=== PATIENT | female | born 1965 | race American Indian/Alaskan Native ===

== ENCOUNTER 2017-01-07 11:50 | Outpatient (CLI) | payer MEDICARE ==
[2017-01-07 12:58] LABS: Blood Urea Nitrogen 9 mg/dL (7-17)
[2017-01-07] MEDS ORDERED: NACL ONE (14:05)
--- NOTE | 2017-01-07 15:35 | Cat Scan Report ---
CT scan of abdomen and pelvis with IV contrast: Findings: Normal liver spleen pancreas and gallbladder. Normal adrenals kidneys and bladder. No free intraperitoneal fluid. No evidence of adenopathy. Gaseous colon with moderate volume stool in colon. The appendix appears normal. No evidence of diverticulitis. Small ventral hernia adjacent to the hernia repair. The hernia contains fat. Impression: Small ventral hernia.
== END 2017-01-07 11:51 | disposition home or self-care (01) ==
LOC: CT 11:50
PROVIDERS: ATTEND Obstetrics & Gynecology Gynecologic Oncology
DX: K43.9 Ventral hernia without obstruction or gangrene (principal); M25.551 Pain in right hip; M79.604 Pain in right leg; R10.2 Pelvic and perineal pain
CPT/HCPCS: 36415; 74177; 82565; 84520; Q9967

== ENCOUNTER 2017-01-17 11:42 | Outpatient (CLI) | payer MEDICARE ==
--- NOTE | 2017-01-17 13:42 | Mammography Report ---
Bilateral mammogram: Compared to 09/01/12. CAD study utilized. Findings: Heterogeneous breast parenchyma bilaterally. No mass or microcalcification. Benign axillary nodes. Impression: Benign findings. Annual followup recommended. BI-RADS CATEGORY: 2 = Benign ACR BI-RADS MAMMOGRAPHIC CODES: 0 = Needs additional imaging evaluation; 1 = Negative; 2 = Benign; 3 = Probably benign; 4 = Suspicious; 5 = Malignant; 6 = Known biopsy-proven malignancy COMMENT: 1. Dense breast tissue, i.e., adenosis, fibrocystic changes, etc., may obscure an underlying neoplasm. 2. Approximately 10% of cancers are not detected with mammography. 3. A negative mammography report should not delay biopsy if a clinically suspicious mass is present. COMMENT: Patient follow-up letters are generated in [employer].
== END 2017-01-17 11:43 | disposition home or self-care (01) ==
LOC: MAMMO 11:42
PROVIDERS: ATTEND Obstetrics & Gynecology Gynecologic Oncology
DX: Z12.31 Encounter for screening mammogram for malignant neoplasm of breast (principal)
CPT/HCPCS: 77067; G0202

== ENCOUNTER 2019-10-01 14:09 | Outpatient (CLI) | payer MEDICARE ==
--- NOTE | 2019-10-01 16:08 | Ultrasound Report ---
BILATERAL DIGITAL DIAGNOSTIC MAMMOGRAM WITH CAD 10/01/2019 RIGHT LIMITED BREAST ULTRASOUND INDICATION: History of ovarian cancer with a long-standing right Hicupi-s-Moyl. Palp lump right breas t TECHNIQUE: Digital bilateral mammographic imaging was performed. Spot compression views were obtaine d. Limited ultrasound was performed. This examination was interpreted with the benefit of Computer- ded Detection (CAD) analysis. COMPARISON: 01/17/2017 FINDINGS: Breast Density: The breasts are heterogeneously dense, which may obscure small masses. MAMMOGRAPHIC FINDINGS: There is no evidence of dominant mass, suspicious calcifications or architectu ral distortion in the left breast. An irregular 3.2 cm right upper outer mass with pleomorphic calcif ications correlates with the palpable lump. A grossly abnormal right axillary lymph node also contain s calcifications and measures 2.1 cm. The lymph node is more dense than the rest of the lymph nodes i n the axilla. ULTRASOUND FINDINGS: Targeted ultrasound evaluation was performed of the area of interest. Ultrasou nd of the upper right breast was performed and demonstrated a solid irregular hypoechoic mass at 10:0 0 12 cm from the nipple. It contains numerous calcifications and correlates with the palpable mass. I t measures 2.2 x 2.1 x 2.4 cm. A second irregular solid heterogeneous hypoechoic mass at 11:00 6 cm f rom the nipple measures 0.7 x 0.6 x 0.6 cm. Ultrasound of the right axilla demonstrates an abnormal l ymph node with minimal central fat. It measures 2.2 x 1.3 x 1.7 cm and contains numerous calcificatio ns within the hilum. IMPRESSION: Suspicious right breast masses at 10:00 12 cm from the nipple and at 11:00 6 cm from the nipple. A suspicious right axillary lymph node. Recommend ultrasound-guided needle biopsies of these 3 lesions. Follow up recommendation: Biopsy BI-RADS Category 5: Highly Suggestive of Malignancy. A "normal" or negative report should not discourage follow up or biopsy of a clinically significant f inding. A written summary of these findings will be mailed to the patient. The patient will be entered into a mammography reporting system which will generate a reminder letter for the patient's next appointmen t at the appropriate interval. According to the [employer], yearly mammograms are recommended starting at age 40 and continuing as long as a woman is in good health. Breast MRI is recommended for women with an ruddy roximately 20-25% or greater lifetime risk of breast cancer, including women with a strong family his tory of breast or ovarian cancer and women who have been treated for Hodgkin's disease. Signer Name: Ha Blair MD Signed: 10/01/2019 4:03 PM Workstation Name: [id number]
== END 2019-10-01 14:10 | disposition home or self-care (01) ==
LOC: SPVWC 14:09
PROVIDERS: ATTEND Surgery
DX: N63.11 Unspecified lump in the right breast, upper outer quadrant (principal); R59.0 Localized enlarged lymph nodes; Z85.43 Personal history of malignant neoplasm of ovary
CPT/HCPCS: 77066

== ENCOUNTER 2019-10-11 09:20 | Outpatient (CLI) | payer MEDICARE ==
--- NOTE | 2019-10-11 13:20 | Ultrasound Report ---
ULTRASOUND-GUIDED NEEDLE CORE BIOPSY RIGHT BREAST WITH CLIP PLACEMENT X2 AND ULTRASOUND GUIDED NEEDLE CORE BIOPSY RIGHT AXILLARY LYMPH NODE CLINICAL: 2 suspicious right breast masses and suspicious right axillary lymph nodes. FINDINGS: The procedure was explained to the patient and informed consent was obtained. Ultrasound demonstrated the previously identified breast masses at 10:00 10 cm from the nipple and at 11:00 6 cm from the nipple.. I marked the breast with a felt tip marker and a timeout was called. The skin was prepped with Chloro -Prep and anesthetized with 1% lidocaine. Needle core biopsy of an enlarged axillary lymph node was performed through a small dermatotomy using 1% lidocaine for superficial anesthesia and 2% lidocaine for deep anesthesia and a coaxial 18-gauge achieve biopsy device. 2 cores were obtained and placed in formalin. A clip was deployed within the l ymph node. Needle core biopsy was performed through small dermatotomy at 11:00 6 cm from the nipple using ultras ound guidance, 2% lidocaine with epinephrine for deep anesthesia and a 14-gauge Achieve biopsy device . 4 cores were obtained and placed in formalin. A clip was deployed within the lesion. Needle core biopsy was performed through small dermatotomy at 10:00 10 cm from the nipple using ultra sound guidance, 2% lidocaine with epinephrine for deep anesthesia and a 14-gauge Achieve biopsy devic e. 3 cores were obtained and placed in formalin. A clip was deployed within the mass. The patient tolerated the procedure well and there were no apparent complications. Hemostasis was ach ieved with minimal effort and sterile dressings were applied. A post procedure mammogram demonstrated concordant clip deployment at 3 sites. She left the [facility] in good condition and was given instructions for wound care and follow-up. IMPRESSION: Uncomplicated ultrasound guided needle core biopsy with clip placement right breast and u ncomplicated ultrasound-guided needle core biopsy of a right axillary lymph node. Signer Name: Ha Blair MD Signed: 10/11/2019 1:15 PM Workstation Name: [id number]
--- NOTE | 2019-10-11 13:22 | Mammography Report ---
DIGITAL DIAGNOSTIC MAMMOGRAM WITH CAD, 10/11/2019 INDICATION: -Post clip Rt TECHNIQUE: Digital right mammographic imaging was performed. This examination was interpreted with the benefit of Computer-aided Detection analysis. COMPARISON: 10/01/2019 FINDINGS: Breast Density: The breasts are heterogeneously dense, which may obscure small masses. Biopsy clips are identified at 11:00 6 cm from the nipple and at 10:00 10 cm from the nipple. There i s no mammographic finding at the 11:00 clip. The 10:00 clip is within the previously identified mass. A clip is also identified within a right axillary lymph node. IMPRESSION: Concordant clip deployment. Follow up recommendation: Clinical exam Post biopsy imaging. A "normal" or negative report should not discourage follow up or biopsy of a clinically significant f inding. A written summary of these findings will be mailed to the patient. The patient will be entered into a mammography reporting system which will generate a reminder letter for the patient's next appointmen t at the appropriate interval. According to the [employer], yearly mammograms are recommended starting at age 40 and continuing as long as a woman is in good health. Breast MRI is recommended for women with an ruddy roximately 20-25% or greater lifetime risk of breast cancer, including women with a strong family his tory of breast or ovarian cancer and women who have been treated for Hodgkin's disease. Signer Name: Ha Blair MD Signed: 10/11/2019 1:18 PM Workstation Name: [id number]
== END 2019-10-11 09:21 | disposition home or self-care (01) ==
LOC: SPVWC 09:20
PROVIDERS: ATTEND Surgery
DX: N63.11 Unspecified lump in the right breast, upper outer quadrant (principal); C77.3 Secondary and unspecified malignant neoplasm of axilla and upper limb lymph nodes; C50.411 Malignant neoplasm of upper-outer quadrant of right female breast; N64.89 Other specified disorders of breast; R92.0 Mammographic microcalcification found on diagnostic imaging of breast; R59.0 Localized enlarged lymph nodes; J45.909 Unspecified asthma, uncomplicated; Z79.899 Other long term (current) drug therapy; Z90.710 Acquired absence of both cervix and uterus; Z98.890 Other specified postprocedural states; Z85.43 Personal history of malignant neoplasm of ovary
CPT/HCPCS: 38505; 76942; 88305; 88341; 88342; 88368

== ENCOUNTER 2019-10-31 11:13 | Outpatient (CLI) | payer MEDICARE ==
--- NOTE | 2019-11-01 13:01 | Magnetic Resonance Report ---
BILATERAL BREAST MR WITHOUT AND WITH GADOLINIUM INDICATION: Newly diagnosed right breast cancer. Ultrasound-guided needle biopsy of a right breast m ass at 10:00 10 cm from the nipple on 10/11/2019 revealed invasive carcinoma NOS. Ultrasound guided ne edle biopsy of a right axillary lymph node revealed metastatic carcinoma. Biopsy of a right breast ma ss at 11:00 6 cm from the nipple revealed small fragments of benign breast tissue. COMPARISONS: 10/01/2019 bilateral mammogram and right breast ultrasound TECHNIQUE: Axial 1.0 mm T1 without, axial high-resolution 2.0 mm T2 and axial 1.0 mm dynamic vibrant high-resolution postcontrast T1 fat saturation sequences on a 1.5 Amelia magnet. The examination was p erformed with an 8-channel dedicated Sentinelle breast coil. Post-processing with CAD and subtraction was performed on an [employer] workstation. 18.0 cc of MultiHance was injected without incident for the c ontrast portion of the exam. Consent was obtained prior to the administration of the contrast. FINDINGS: RIGHT BREAST: Minimal background parenchymal enhancement. An irregular upper outer mass 10 cm from th e nipple contains a biopsy clip and correlates with the known cancer. It measures 3.0 x 2.4 x 2.4 cm. It demonstrates heterogeneous enhancement with mixed kinetics, 124% peak enhancement and 19% type II I washout. A second irregular enhancing mass in the upper outer quadrant 12.7 cm from the nipple victor m ures 7.7 x 5.9 x 4.6 mm. This mass correlates in size and shape with the second mass that was biopsie d by ultrasound but the location is not concordant. It is also possible to identify a second biopsy c lip in the right breast. No other mass or suspicious enhancement. A single abnormal right level 1 axi llary lymph node correlates with the known metastatic lymph node. It measures 2.2 x 2.0 x 2.0 cm. No other suspicious lymph nodes. LEFT BREAST: Mild background parenchymal enhancement. No mass or suspicious enhancement. No suspiciou s lymph nodes. IMPRESSION: 1. A known 3 cm right breast cancer at 10:00 10 to 12 cm from the nipple. 2. A 7.7 mm suspicious right breast mass which may or may not correlate with the recently biopsied se cond mass. This discordance may be explained by differences in positioning for the ultrasound and MRI procedures. Since the pathology of the second mass is discordant based on the ultrasound findings, r ecommend rebiopsy of that lesion by ultrasound and recommend a targeted right breast ultrasound to ev aluate for a possible additional mass which may correlate with this second mass identified by MRI. BI-RADS Category 6: Known Cancer Signer Name: Ha Blair MD Signed: 11/01/2019 12:56 PM Workstation Name: [id number]
== END 2019-10-31 11:14 | disposition home or self-care (01) ==
LOC: SPVIMAG 11:13
PROVIDERS: ATTEND Surgery
DX: C50.911 Malignant neoplasm of unspecified site of right female breast (principal); N63.11 Unspecified lump in the right breast, upper outer quadrant
CPT/HCPCS: A9577; C8908; 77049

== ENCOUNTER 2019-11-08 10:07 | Outpatient (CLI) | payer MEDICARE ==
--- NOTE | 2019-11-08 12:00 | Ultrasound Report ---
ULTRASOUND-GUIDED RIGHT BREAST BIOPSY WITH MARKER HISTORY: Right breast mass. CONSENT: Technique, risks and alternatives were discussed with the patient and informed written conse nt obtained. COMPARISON: 10/31/2019, 10/11/2019, 10/01/2019. PROCEDURE: Initially a targeted ultrasound was performed of the right breast at 9:30 position, 17 cm from the ni pple, to evaluate the site of a previously noted MRI finding. Images demonstrate a taller than wide 1 .2 x 0.5 x 0.6 cm irregular hypoechoic mass. This would appear to correspond with the finding seen in this region on the recent MRI. Ultrasound-guided biopsy of this area is planned for the same day. Ad ditionally, targeted ultrasound of the right breast at the 11:00 position, 6 cm from the nipple, was performed to evaluate the site of a previously biopsied area performed on 10/11. The biopsy results we re benign, but were felt to be discordant. There is no residual lesion. A biopsy marker could not be reliably identified in this region. The targeted mass in the right breast at the 9:30 position, 17 cm from the nipple, position of the [facility] breast was located sonographically. The overlying skin was cleansed with Betadine. The skin and superficial soft tissues were anesthetized with a small amount of buffered 1% lidocaine. The deeper soft tissues were anesthetized with buffered 1% lidocaine with epinephrine. A small dermatotomy was created through which a 14-gauge spring loaded core biopsy needle was used to obtain core samples. Un bijan real time sonographic guidance, a total of 5 core specimen samples were acquired to submit to [facility] pathology for analysis. At the conclusion of the procedure, a SecurMark biopsy marker was deplo yed within the residual mass. Manual pressure was applied at the biopsy site to achieve hemostasis. The incision margins were appro ximated with Steri-Strips. A postprocedure mammogram demonstrates biopsy marker in the expected locat ion. Post procedure care instructions were administered in both verbal and written forms. The patient voic ed understanding and left the breast center in stable, satisfactory condition. IMPRESSION Technically successful ultrasound-guided core biopsy of right breast mass at the 9:30 position with p lacement of breast biopsy marker. This would appear to correspond with the focal area of abnormal enh ancement seen in this region on the recent comparison MRI. A targeted ultrasound of the right breast at the 11:00 position, 6 cm from the nipple, was performed to evaluate the site of a previously biopsied area (performed 10/11/2019). These results were felt to be discordant. No residual mass is identified in this region on the current exam and no definite biop sy marker could be identified sonographically. Given the discordant findings, wire localization of th e biopsy marker may be considered if breast conservation is decided. Patient is scheduled to follow up with Dr. Murphy on 11/14/2019. Signer Name: Janusz Miranda MD Signed: 11/08/2019 11:56 AM Workstation Name: [id number]
--- NOTE | 2019-11-13 16:08 | Mammography Report ---
DIGITAL DIAGNOSTIC MAMMOGRAM WITH CAD, 11/08/2019 INDICATION: S/P clip placement ultrasound biopsy TECHNIQUE: Digital right mammographic imaging was performed. This examination was interpreted with the benefit of Computer-aided Detection analysis. COMPARISON: 10/11/2019 FINDINGS: Breast Density: The breasts are heterogeneously dense, which may obscure small masses. A third biopsy clip is now identified outer breast approximately 18 cm from the nipple. The position is concordant with the second mass identified by MRI . IMPRESSION: Concordant clip deployment after MRI biopsy. Follow up recommendation: No recall. Post biopsy imaging. A "normal" or negative report should not discourage follow up or biopsy of a clinically significant f inding. A written summary of these findings will be mailed to the patient. The patient will be entered into a mammography reporting system which will generate a reminder letter for the patient's next appointmen t at the appropriate interval. According to the [employer], yearly mammograms are recommended starting at age 40 and continuing as long as a woman is in good health. Breast MRI is recommended for women with an ruddy roximately 20-25% or greater lifetime risk of breast cancer, including women with a strong family his tory of breast or ovarian cancer and women who have been treated for Hodgkin's disease. Signer Name: Ha Blair MD Signed: 11/13/2019 4:04 PM Workstation Name: [id number]
== END 2019-11-08 10:08 | disposition home or self-care (01) ==
LOC: SPVWC 10:07
PROVIDERS: ATTEND Surgery
DX: N63.11 Unspecified lump in the right breast, upper outer quadrant (principal); D64.9 Anemia, unspecified; J45.909 Unspecified asthma, uncomplicated; Z85.43 Personal history of malignant neoplasm of ovary; Z90.710 Acquired absence of both cervix and uterus; Z98.891 History of uterine scar from previous surgery; Z79.899 Other long term (current) drug therapy; Z98.890 Other specified postprocedural states
CPT/HCPCS: 88305; 88342

== ENCOUNTER 2020-05-09 08:00 | Observation (INO) | payer MEDICARE ==
[2020-06-05 12:01] LABS: Basophils % (Auto) 0.7 % (0.0-1.8); Eosinophils % (Auto) 0.7 % (0.0-4.3); Hematocrit 39.1 % (30.3-42.9); Hemoglobin 13.2 gm/dl (10.1-14.3); Lymphocytes # (Auto) 2.4 K/mm3 (1.2-5.4); Lymphocytes % (Auto) 45.3 % (13.4-35.0); Mean Corpuscular HGB Conc 34 % (30-34); Mean Corpuscular Volume 92 fl (79-97); Monocytes # (Auto) 0.4 K/mm3 (0.0-0.8); Monocytes % (Auto) 7.2 % (0.0-7.3); Platelet Count 210 K/mm3 (140-440); Red Blood Count 4.25 M/mm3 (3.65-5.03); Red Cell Distribution Width 15.5 % (13.2-15.2)
[2020-06-05 12:13] LABS: INR 0.97 (0.87-1.13); Partial Thromboplastin Time 26.4 Sec. (24.2-36.6)
[2020-06-05 12:25] LABS: Alanine Aminotransferase 40 units/L (7-56); Albumin 4.2 g/dL (3.9-5); Blood Urea Nitrogen 7 mg/dL (7-17); Calcium 9.4 mg/dL (8.4-10.2); Hemolysis Index 15
[2020-06-05 12:26] LABS: BUN/Creatinine Ratio 10
--- NOTE | 2020-06-05 14:23 | XRay Report ---
XR chest routine 2V INDICATION / CLINICAL INFORMATION: Hx breast cancer COMPARISON: None available. FINDINGS: SUPPORT DEVICES: Right port terminates in lower SVC. HEART / MEDIASTINUM: No significant abnormality. LUNGS / PLEURA: Lungs are clear. Costophrenic sulci are sharp. No pneumothorax. No lung mass identif ied. ADDITIONAL FINDINGS: No significant additional findings. IMPRESSION: 1. No acute findings. Signer Name: Too Pérez MD Signed: 06/05/2020 2:18 PM Workstation Name: [id number]
[2020-06-09] MEDS ORDERED: CELECOXIB 200 MG CAP PO NR (06:00)
[2020-06-09] MEDS ORDERED: ceFAZolin/Water 2 GM/20 ML 2 GM/20 ML SYRINGE IV NR (06:00)
[2020-06-09] MEDS ORDERED: MIDAZOLAM 2 MG/2 ML INJ IV NR (06:00)
[2020-06-09] MEDS ORDERED: GABAPENTIN 300 MG CAP PO NR (06:00)
[2020-06-09] MEDS ORDERED: LACTATED RINGERS 1,000 ML IV SCH ×2 (06:00→10:00)
[2020-06-09] MEDS ORDERED: SCOPOLAMINE TRANSDERMAL PATCH 72 HR TD NR (06:00)
[2020-06-09] MEDS ORDERED: fentaNYL 100 MCG/2 ML INJ IV PRN (06:00)
[2020-06-09] MEDS ORDERED: dexAMETHasone 4 MG/ML VIAL ONE (07:56)
[2020-06-09] MEDS ORDERED: BUPIVACAINE-EPINEPHRINE/PF 0.5%-1:200,000 (10 ML) VIAL INFILTRATI ONE (07:56)
[2020-06-09] MEDS ORDERED: LIDOCAINE (1%) 10 MG/1 ML VIAL 20 ML MDV ONE (07:56)
--- NOTE | 2020-06-09 08:04 | Anesthesia Consultation ---
Anesthesia Consult and Med Hx Date of service: 06/09/20 - Airway Anesthetic Teeth Evaluation: Good ROM Head & Neck: Adequate Mental/Hyoid Distance: Adequate Mallampati Class: Class III Intubation Access Assessment: Possibly Difficult - Pulmonary Exam CTA: Yes - Cardiac Exam Cardiac Exam: RRR - Pre-Operative Health Status ASA Pre-Surgery Classification: ASA3 Proposed Anesthetic Plan: General Nerve Block: PECs - Pulmonary Hx Smoking: No Hx Asthma: Yes (childhood) Hx Respiratory Symptoms: No Hx Sleep Apnea: No - Cardiovascular System Hx Hypertension: No Hx Heart Attack/AMI: No Hx Cardia Arrhythmia: No - Central Nervous System CVA: No Hx Back Pain: Yes Hx Psychiatric Problems: Yes (anxiety) - Endocrine Hx Renal Disease: No Hx Liver Disease: No Hx Insulin Dependent Diabetes: No Hx Non-Insulin Dependent Diabetes: No Hx Thyroid Disease: No - Other Systems Hx Cancer: Yes (hx ovarian and breast ca) Hx Obesity: Yes (BMI 42) - Additional Comments Anesthesia Medical History Comments: No hx anesthetic complications. Has anaphylactic reaction to chemo drug but does not know the name.
--- NOTE | 2020-06-09 08:04 | Anesthesia Day of Surgery ---
Anesthesia Day of Surgery - Day of Surgery Patient Examined: Yes Patient H&P Reviewed: Yes Patient is NPO: Yes
[2020-06-09] MEDS ORDERED: HYDROmorphone 1 MG/1 ML INJ IV PRN (08:30)
--- NOTE | 2020-06-09 09:39 | Short Stay Summary ---
Short Stay Documentation Date of service: 06/09/20 - History H&P: obtained from office - Allergies and Medications Current Medications: Allergies No Known Allergies Allergy (Unverified 05/20/14 07:49) Home Medications Medication Instructions Recorded Confirmed Last Taken Type Acetaminophen [Non-Aspirin Extra 500 mg PO PRN PRN 06/02/20 06/09/20 06/08/20 History Strength] Active Medications Celecoxib (Celebrex) 200 mg PO PREOP NR Stop: 06/09/20 23:59 Last Admin: 06/09/20 08:15 Dose: 200 mg Documented by: Fentanyl (Sublimaze) 100 mcg IV ONCE PRN PRN Reason: sedation for nerve block Last Admin: 06/09/20 09:05 Dose: 100 mcg Documented by: Gabapentin (Gabapentin) 300 mg PO PREOP NR Stop: 06/09/20 23:59 Last Admin: 06/09/20 08:15 Dose: 300 mg Documented by: Hydromorphone HCl (Dilaudid) 0.25 mg IV Q10MIN PRN PRN Reason: Pain, Moderate (4-6) Stop: 06/09/20 19:00 Cefazolin Sodium 3 gm/ Sodium (Chloride) 100 mls @ 100 mls/30 min IV PREOP NR; Protocol Stop: 06/09/20 23:59 Lactated Ringer's (Lactated Ringers) 1,000 mls @ 100 mls/hr IV DIRECT ARASH Stop: 06/09/20 23:59 Last Admin: 06/09/20 08:55 Dose: 100 mls/hr Documented by: Midazolam HCl (Versed) 2 mg IV PREOP NR Stop: 06/09/20 23:59 Last Admin: 06/09/20 09:05 Dose: 2 mg Documented by: Scopolamine (Transderm-Scop) 1 each TD PREOP NR Stop: 06/09/20 23:59 Last Admin: 06/09/20 08:10 Dose: 1 each Documented by: - Brief post op/procedure progress note Date of procedure: 06/09/20 Pre-op diagnosis: Right breast cancer upper outer quadrant Post-op diagnosis: same Procedure: Right partial mastectomy with SLNB Anesthesia: GETA Findings: Right breast mass and clip present; x SLNs Surgeon: AV FERRER Estimated blood loss: minimal Pathology: list (right partial mastectomy; x SLNS) Specimen disposition: to lab Condition: stable - Disposition Condition at discharge: Good Disposition: DC-01 TO HOME OR SELFCARE Short Stay Discharge Plan Activity: other (no heavy lifting; wear breast binder) Diet: regular Wound: keep clean and dry (may shower in 48 hours; no baths or pools; wear breast binder; keep MICHAEL drain clean and dry) Follow up with: AV FERRER MD [Staff Physician] - 7 Days Prescriptions: oxyCODONE /ACETAMINOPHEN [Percocet 5/325] 1 tab PO Q6HR PRN #20 tablet PRN Reason: Pain
--- NOTE | 2020-06-09 09:46 | Operative Report ---
Operative Report Operative Report: June 09, 2020 Preoperative diagnosis: Right breast cancer of the upper outer quadrant Postoperative diagnosis: Same Procedure: Right partial mastectomy of the upper outer quadrant and SLNB followed by ALND Surgeon: Violetta Aguilar MD Oracle Database Developer: Deborah Cook MD Anesthesia: General Findings: Right breast with mass and clip present within radiograph specimen; x4 SLNs with 1 SLN positive with biopsy site changes and proceeded with an ALND Complications: None EBL: Less than 50 cc Drains: 15 Trinidadian axillary drain Disposition: PACU in good condition Indications for operative procedure: This is a 55 year old lady with right breast cancer of the upper outer quadrant and BRCA2 positive gene mutation, Stage I [id number] triple negative (IDCA 10:00 position 12 cm from the nipple). She completed neoadjuvant chemotherapy. She has a history of ovarian cancer and is BRCA2 positive gene mutation. Recommendations were to proceed with a bilateral mastectomy given BRCA2 positive gene mutation and patient declined. She understands her increase risk for recurrent right breast cancer and increase risk for contralateral disease. She also understands her increase risk for local and distal disease. Patient with prior right breast biopsy of atypia and she only wanted to proceed with a right partial mastectomy of known malignancy. Patient with axillary lymph node positive for malignancy prior to chemotherapy. She understood the possibility of possible ALND if SLN was positive on frozen section at the time of surgery. She understands the role of adjuvant radiation therapy. She wished to proceed with the above procedure. Procedure in detail: Anesthesia placed right pectoral block. Patient was then taken to the operating room. Gen. anesthesia was administered. The right nipple was injected with radioisotope and 1 cc of Methylene blue dye. Right breast and axilla were prepped and draped in the normal sterile operative fashion. The mass-known breast cancer was palpable at the 10:00 position 12 cm FN and ultrasound used as well with mass and clip present at 10:00 position 12 cm FN. Timeout was performed. Gamma probe was inserted into the axilla. The area of hot spot was identified. A right axillary incision was made with a 15 blade knife with dissection taken down to the subcutaneous tissues. The axillary fascia was opened with the Bovie cautery. One bulkly axillary lymph node SLN was present with radioisotope uptake and blue dye present; additional 3 SLNS identified. SLNs were sent to pathology for frozen section with one lymph node positive and with positive axillary lymph node with biopsy site changes; did not perform frozen on remainder of SLNs given one SLN positive. She would therefore need and ALND given positive SLN. Attention was then taken towards the right breast. Ultrasound used as well for marking of incision. A lateral breast incision was made around the 10:00 position with a 15 blade knife and dissection taken down to subcutaneous tissues. First began raising of the superior flap with dissection superiorly pass known malignancy and then taken down to the pectoralis muscle, followed by raising of the inferior flap, medial flap and lateral flap with all flaps taken pass known malignancy with appropriate margins and dissection then taken down to the pectoralis muscle. The breast area of concern was appropriately removed posteriorly from the pectoralis muscle with the aid of the Bovie cautery. Specimen was marked and then sent to pathology and radiology; radiograph specimen with mass and clip present. Breast cavity was irrigated and hemostasis was obtained. The posterior deep breast tissues were approximated and closed using interrupted 3-0 Vicryl. The subcutaneous tissues were approximated and closed using interrupted 3-0 Vicryl followed by closing of the skin with a running 4-0 Monocryl and skin affix. Attention was then taken towards the right axilla. First began opening of the axillary fascia further. The lattismus dorsi muscle was identified and followed superiorly. Then proceeded with identification of the axillary vein followed by identification of the thoracodorsal bundle and long thoracic nerve. Axillary lymph nodes were then removed from the above boundaries with the aid of the bovie cautery in a sweeping-like motion and then sent to pathology. Axillary lymph nodes from level I and II were removed. Both nerves were identified and unharmed. Axillary cavity was appropriately irrigated and suctioned. Hemostasis was noted. A 15 czech MICHAEL axillary drain was placed. Axillary fascia was approximated and closed using interrupted 3-0 Vicryl and the skin brought together and closed using a running 4-0 Monocryl followed by skin affix. The patient tolerated surgery very well and she was awaken from anesthesia without any complication and transported to PACU in good condition.
[2020-06-09] MEDS ORDERED: ROCURONIUM 50 MG/5 ML INJ IV ONE (09:49)
[2020-06-09] MEDS ORDERED: propofoL 200 MG/20 ML VIAL IV ONE (09:49)
[2020-06-09] MEDS ORDERED: LIDOCAINE MPF (2%) 20 MG/1 ML VIAL 5 ML ONE (09:49)
[2020-06-09] MEDS ORDERED: HYDROmorphone 1 MG/1 ML INJ ONE (09:49)
[2020-06-09] MEDS ORDERED: dexAMETHasone 20 MG/5 ML VIAL ONE (09:49)
[2020-06-09] MEDS ORDERED: HYDROmorphone 2 MG TAB PO PRN (10:00)
[2020-06-09] MEDS ORDERED: ONDANSETRON 4 MG/2 ML INJ IV PRN (10:00)
[2020-06-09] MEDS ORDERED: METOCLOPRAMIDE 10 MG TAB PO PRN (10:00)
[2020-06-09] MEDS ORDERED: diphenhydrAMINE 25 MG CAP PO PRN (10:00)
[2020-06-09] MEDS ORDERED: MORPHINE 2 MG/1 ML INJ IV PRN (10:00)
[2020-06-09] MEDS ORDERED: oxyCODONE /ACETAMINOPHEN 5-325MG TAB PO PRN (10:00)
[2020-06-09] MEDS ORDERED: SODIUM CHLORIDE P/F VIAL 10 ML 10 ML ONE (10:06)
[2020-06-09] MEDS ORDERED: METHYLENE BLUE 50 MG/10 ML AMP ONE (10:06)
[2020-06-09] MEDS ORDERED: ePHEDrine SULFATE 50 MG/1 ML INJ ONE (10:43)
[2020-06-09] MEDS ORDERED: PHENYLEPHRINE/NS 1,000 MCG/10 ML SYRINGE (OR USE) IV ONE (11:30)
[2020-06-09] MEDS ORDERED: LACTATED RINGERS 1,000 ML ONE ×2 (11:30→14:05)
[2020-06-09] MEDS ORDERED: WATER FOR IRRIG STERILE 1,500 ML BOTTLE IR ONE (11:39)
[2020-06-09] MEDS ORDERED: NEOSTIGMINE 10MG/10 ML INJ MDV ONE (13:52)
[2020-06-09] MEDS ORDERED: GLYCOPYRROLATE 0.4 MG/2 ML INJ ONE (13:52)
--- NOTE | 2020-06-09 15:41 | Post Anesthesia Evaluation ---
- Post Anesthesia Evaluation Patient Participated: Yes Airway Patent: Yes Stable Respiratory Function: Yes Nausea/Vomiting: No Temp > 96.8F: Yes Pain Manageable: Yes Adequeate Hydration: Yes Anesthesia Complications: No Other Comments: Pain well controlled with regional block.
[2020-06-09] MEDS ORDERED: HYDROmorphone 2 MG TAB ONE (17:17)
--- NOTE | 2020-06-09 18:50 | Mammography Report ---
BREAST SPECIMEN RADIOGRAPH HISTORY: Right lumpectomy FINDINGS/IMPRESSION: The submitted radiograph or radiographs demonstrate(s) the presence of a biopsy marker contained with in an oval irregular soft tissue mass with associated calcifications. Signer Name: Zenobia Mcgovern MD Signed: 06/09/2020 6:45 PM Workstation Name: [id number]
[2020-06-09] MEDS: DOCUSATE SODIUM 100 MG CAP PO SCH (19:46)
[2020-06-09] MEDS: ACETAMINOPHEN 325 MG TAB PO PRN (20:57)
[2020-06-10] MEDS: DOCUSATE SODIUM 100 MG CAP PO SCH ×2 (02:15→10:00)
[2020-06-10] MEDS: ACETAMINOPHEN 325 MG TAB PO PRN (02:36)
--- NOTE | 2020-06-10 08:05 | Progress Note ---
Assessment and Plan This is a 55 year old lady with Stage right breast cancer UOQ, POD# 1 right partial mastectomy with ALND 1. Pain in good control, minimal complaints of pain. 2. Right breast and axillary incision healing well. 3. MICHAEL drain education. 4. OOB to hallway. 5. D/C planning for today. Subjective Date of service: 06/10/20 Principal diagnosis: Stage II right breast cancer upper outer quadrant Interval history: POD#1 right partial mastectomy with ALND Objective - Constitutional Vitals: Vital Signs - 12hr 06/09/20 06/09/20 06/10/20 20:26 20:57 01:00 Temperature 98.6 F 98.6 F Pulse Rate 102 H 78 Respiratory 16 18 16 Rate Respiratory 18 Rate [Head] Blood Pressure 144/73 Blood Pressure 115/78 [Left] O2 Sat by Pulse 92 Oximetry 06/10/20 06/10/20 02:36 04:30 Temperature 98.7 F Pulse Rate 78 Respiratory 18 18 Rate Respiratory Rate [Head] Blood Pressure Blood Pressure 116/64 [Left] O2 Sat by Pulse Oximetry General appearance: Present: no acute distress - EENT Eyes: PERRL ENT: hearing intact Ears: bilateral: normal - Neck Neck: supple, normal ROM - Respiratory Respiratory effort: normal - Breasts Breasts: other (right axillary and breast incision c/d/i; no hematoma; MICHAEL drain with appropriate output; nontender) - Cardiovascular Rhythm: regular Extremities: no ischemia, pulses intact, pulses symmetrical, No edema, normal temperature, normal color, Full ROM - Gastrointestinal General gastrointestinal: Present: soft, non-tender, non-distended Rectal Exam: deferred - Genitourinary Female genitourinary: deferred - Integumentary Integumentary: clear, warm, dry - Musculoskeletal Musculoskeletal: strength equal bilaterally - Neurologic Neurologic: CNII-XII intact, moves all extremities - Psychiatric Psychiatric: appropriate mood/affect, intact judgment & insight, memory intact, cooperative - Labs CBC & Chem 7: 06/05/20 10:05 06/05/20 10:05 Medications & Allergies - Medications Allergies/Adverse Reactions: Allergies No Known Allergies Allergy (Unverified 05/20/14 07:49) Home Medications: Home Medications Medication Instructions Recorded Confirmed Last Taken Type Acetaminophen [Non-Aspirin Extra 500 mg PO PRN PRN 1006/09/20 06/08/20 History Strength] oxyCODONE /ACETAMINOPHEN [Percocet 1 tab PO Q6HR PRN #20 tablet 06/09/20 Unknown Rx 5/325] Active Medications: Generic Name Dose Route Start Last Admin Trade Name Prabhakarq PRN Reason Stop Dose Admin Acetaminophen 650 mg 06/09/20 10:00 06/10/20 02:36 Tylenol PO 650 mg Q6H PRN Administration Pain MILD(1-3)/Fever >100.5/EDWARDS Diphenhydramine HCl 25 mg 06/09/20 10:00 Benadryl PO Q8H PRN Itching Docusate Sodium 100 mg 06/09/20 10:00 06/10/20 02:15 Colace PO Not Given BID ARASH Fentanyl 100 mcg 06/09/20 06:00 06/09/20 09:05 Sublimaze IV 100 mcg ONCE PRN Administration sedation for nerve block Hydromorphone HCl 2 mg 06/09/20 10:00 06/09/20 17:30 Dilaudid PO 2 mg Q6H PRN Administration Pain , Severe (7-10) Lactated Ringer's 1,000 mls @ 125 mls/hr 06/09/20 10:00 Lactated Ringers IV DIRECT ARASH Metoclopramide HCl 10 mg 06/09/20 10:00 Reglan PO Q6H PRN Nausea And Vomiting Morphine Sulfate 2 mg 06/09/20 10:00 Morphine IV Q4H PRN Pain, Moderate (4-6) Ondansetron HCl 4 mg 06/09/20 10:00 Zofran IV Q8H PRN N/V unrelieved by Reglan Oxycodone/Acetaminophen 1 tab 06/09/20 10:00 Percocet 5/325 PO Q6H PRN Pain, Moderate (4-6) Sodium Chloride 10 ml 06/09/20 10:00 Sodium Chloride Flush Syringe 10 Ml IV PRN PRN LINE FLUSH
[2020-06-10 16:43] VITALS: BP 147/59
== END 2020-06-10 17:56 | disposition home or self-care (01) ==
LOC: INTOOBSV 06-09 07:37 → 3A 06-09 07:37 → EDSTATUS 06-09 08:00 → OB 06-09 14:44
PROVIDERS: ADMIT Surgery; ATTEND Surgery
DX: C50.411 Malignant neoplasm of upper-outer quadrant of right female breast (principal); Z20.828 Contact with and (suspected) exposure to other viral communicable diseases; Z79.899 Other long term (current) drug therapy
CPT/HCPCS: 19302; 36415; 38525; 38792; 64450; 71046; 76098; 78800; 80053; 85025; 85610; 85730; 88307; 88331; 88342; 93005; 96360; 96361; A9541; G0378; G0379; J1100; J1170; J2250; J2370; J2704; J2710; J3010; J7120; Q9968; U0003; 88305

== ENCOUNTER 2020-09-03 11:52 | Emergency (ER) | payer MEDICARE ==
[2020-09-03 12:14] VITALS: BP 140/71
[2020-09-03] MEDS ORDERED: FAMOTIDINE 20 MG/2 ML INJ IV ONE (12:21)
[2020-09-03] MEDS ORDERED: diphenhydrAMINE 50 MG/ML VIAL IV ONE (12:21)
[2020-09-03] MEDS ORDERED: methylPREDNISolone Sod Succinate 125 MG/2 ML INJ IV ONE (12:21)
--- NOTE | 2020-09-03 12:23 | Event Note ---
ED Screening Note Date of service: 09/03/20 Time: 12:22 ED Screening Note: This pleasant 55-year-old female with past medical history of breast cancer status post lumpectomy presents the emergency department the rash to the bilateral lower extremities and arms and buttocks. She reports she took Bactrim last 5 days ago for an infection on her breast. She was scheduled to take 14 total pills for a week but only took 6 and started to have a rash to her lower extremities. She started to feel some stabbing pains in her chest. She denies any oral lesions, shortness of breath, fever. This initial assessment/diagnostic orders/clinical plan/treatment(s) is/are subject to change based on patients health status, clinical progression and re- assessment by fellow clinical providers in the ED. Further treatment and workup at subsequent clinical providers discretion. Patient/guardian urged not to elope from the ED as their condition may be serious if not clinically assessed and managed. Initial orders include: Due to chest pain, basic labs, troponin, EKG and x-ray was ordered. Solu-Medrol, Benadryl and Pepcid was ordered after speaking with attending
--- NOTE | 2020-09-03 13:07 | XRay Report ---
CHEST 2 VIEWS INDICATION: Chest Pain. COMPARISON: 06/05/2020 FINDINGS: Support devices: [id number] has its tip in the superior vena cava Heart: Within normal limits. Lungs: No acute air space or interstitial disease. Pleura: No significant pleural effusion. No pneumothorax. Additional findings: None. IMPRESSION: 1. No acute findings. Signer Name: Giovanni Wise MD Signed: 09/03/2020 1:02 PM Workstation Name: [id number]
[2020-09-03] MEDS ORDERED: SODIUM CHLORIDE 0.9% 1000 ML 1,000 ML IV ONE (13:35)
[2020-09-03 13:40] LABS: Basophils % (Auto) 0.9 % (0.0-1.8); Hematocrit 41.2 % (30.3-42.9); Lymphocytes # (Auto) 1.3 K/mm3 (1.2-5.4); Mean Corpuscular HGB Conc 34 % (30-34); Mean Corpuscular Volume 90 fl (79-97); Monocytes # (Auto) 0.3 K/mm3 (0.0-0.8); Monocytes % (Auto) 7.8 % (0.0-7.3); Platelet Count 226 K/mm3 (140-440); Red Blood Count 4.58 M/mm3 (3.65-5.03)
--- NOTE | 2020-09-03 13:45 | Emergency Department Report ---
- General Chief complaint: Skin Rash Stated complaint: RASH/LEG PAIN Time Seen by Provider: 09/03/20 13:24 Source: patient Mode of arrival: Wheelchair Limitations: No Limitations - History of Present Illness Initial comments: Patient is 55 years old female with history of breast cancer status post right lumpectomy. Patient presented to the ER complaining of bilateral lower extre mity rash started 5 days ago after patient started on Bactrim for right breast abscess by her breast surgeon. Patient stated that rash started on her foot and then it spread to her distal lower extremities and her belly. Patient denied any any oral lesion. Patient stated that she has some sharp pain from time to time but stated that she does not have it anymore now. Patient denied any fever or chills. No chest pain, shortness of breath or cough. MD complaint: rash, lesion, discoloration -: days(s) (5) Location: buttocks, LLE, RLE Severity: moderate Context: new medication, recent antibiotic Associated symptoms: denies other symptoms Treatments Prior to Arrival: none - Related Data Home Medications Medication Instructions Recorded Confirmed Last Taken Acetaminophen [Non-Aspirin Extra 500 mg PO PRN PRN 06/02/20 06/09/20 06/08/20 Strength] Previous Rx's Medication Instructions Recorded Last Taken Type oxyCODONE /ACETAMINOPHEN [Percocet 1 tab PO Q6HR PRN #20 tablet 06/09/20 Unknown Rx 5/325] oxyCODONE /ACETAMINOPHEN [Percocet 1 tab PO Q6HR PRN #20 tablet 06/10/20 Unknown Rx 5/325] Famotidine [Pepcid] 40 mg PO QHS #5 tablet 09/03/20 Unknown Rx Prednisone [predniSONE 10 mg 10 mg PO .TAPER #1 tab.ds.pk 09/03/20 Unknown Rx (6-Day Pack, 21 Tabs)] diphenhydrAMINE [Benadryl CAP] 25 mg PO Q8HR PRN #20 capsule 09/03/20 Unknown Rx Allergies Allergy/AdvReac Type Severity Reaction Status Date / Time No Known Allergies Allergy Verified 09/03/20 12:07 Abscess Boil HPI - HPI Chief Complaint: Skin Rash Stated Complaint: RASH/LEG PAIN Time Seen by Provider: 09/03/20 13:24 Home Medications: Home Medications Medication Instructions Recorded Confirmed Last Taken Acetaminophen [Non-Aspirin Extra 500 mg PO PRN PRN 06/02/20 06/09/20 06/08/20 Strength] Previous Rx's Medication Instructions Recorded Last Taken Type oxyCODONE /ACETAMINOPHEN [Percocet 1 tab PO Q6HR PRN #20 tablet 06/09/20 Unknown Rx 5/325] oxyCODONE /ACETAMINOPHEN [Percocet 1 tab PO Q6HR PRN #20 tablet 06/10/20 Unknown Rx 5/325] Famotidine [Pepcid] 40 mg PO QHS #5 tablet 09/03/20 Unknown Rx Prednisone [predniSONE 10 mg 10 mg PO .TAPER #1 tab.ds.pk 09/03/20 Unknown Rx (6-Day Pack, 21 Tabs)] diphenhydrAMINE [Benadryl CAP] 25 mg PO Q8HR PRN #20 capsule 09/03/20 Unknown Rx Allergies/Adverse Reactions: Allergies Allergy/AdvReac Type Severity Reaction Status Date / Time No Known Allergies Allergy Verified 09/03/20 12:07 ED Review of Systems ROS: Stated complaint: RASH/LEG PAIN Other details as noted in HPI Comment: All other systems reviewed and negative Constitutional: denies: chills, fever Respiratory: denies: cough, shortness of breath Cardiovascular: palpitations. denies: chest pain Gastrointestinal: denies: abdominal pain, nausea, vomiting Musculoskeletal: denies: back pain Neurological: denies: headache, weakness ED Past Medical Hx - Past Medical History Hx Hypertension: No Hx Heart Attack/AMI: No Hx Congestive Heart Failure: No Hx Diabetes: No Hx GERD: Yes Hx Liver Disease: No Hx Renal Disease: No Hx of Cancer: Yes (BREAST) Hx Sickle Cell Disease: No Hx Arthritis: Yes Hx Headaches / Migraines: No Hx Seizures: No Hx Kidney Stones: No Hx Asthma: Yes (childhood) Hx COPD: No Hx Tuberculosis: No Hx HIV: No - Surgical History Hx Pacemaker: No Hx Internal Defibrillator: No Additional Surgical History: BREAST SURGERY - Social History Smoking Status: Never Smoker Substance Use Type: None - Medications Home Medications: Home Medications Medication Instructions Recorded Confirmed Last Taken Type Acetaminophen [Non-Aspirin Extra 500 mg PO PRN PRN 06/02/20 06/09/20 06/08/20 History Strength] oxyCODONE /ACETAMINOPHEN [Percocet 1 tab PO Q6HR PRN #20 tablet 06/09/20 Unknown Rx 5/325] oxyCODONE /ACETAMINOPHEN [Percocet 1 tab PO Q6HR PRN #20 tablet 06/10/20 Unknown Rx 5/325] Famotidine [Pepcid] 40 mg PO QHS #5 tablet 09/03/20 Unknown Rx Prednisone [predniSONE 10 mg 10 mg PO .TAPER #1 tab.ds.pk 09/03/20 Unknown Rx (6-Day Pack, 21 Tabs)] diphenhydrAMINE [Benadryl CAP] 25 mg PO Q8HR PRN #20 capsule 09/03/20 Unknown Rx ED Physical Exam - General Limitations: No Limitations General appearance: alert, in no apparent distress - Head Head exam: Present: atraumatic, normocephalic, normal inspection - Eye Eye exam: Present: normal appearance - ENT ENT exam: Present: normal exam, normal orophraynx, mucous membranes moist - Neck Neck exam: Present: normal inspection, full ROM. Absent: tenderness, meningismus - Respiratory Respiratory exam: Present: normal lung sounds bilaterally - Cardiovascular Cardiovascular Exam: Present: regular rate, normal rhythm, normal heart sounds - GI/Abdominal GI/Abdominal exam: Present: soft. Absent: distended, tenderness, guarding, rebound - Extremities Exam Extremities exam: Present: other (Diffuse maculopapular rash with no evidence of bullous formation.) - Back Exam Back exam: Present: normal inspection, full ROM. Absent: CVA tenderness (R), CVA tenderness (L) - Neurological Exam Neurological exam: Present: alert, oriented X3, CN II-XII intact - Psychiatric Psychiatric exam: Present: normal mood - Skin Skin exam: Present: warm, intact, rash ED Course Vital Signs 09/03/20 12:13 Temperature 98.2 F Pulse Rate 112 H Respiratory 19 Rate Blood Pressure 140/71 O2 Sat by Pulse 97 Oximetry ED Medical Decision Making - Lab Data Result diagrams: 09/03/20 13:16 09/03/20 13:16 - Radiology Data Radiology results: report reviewed - Medical Decision Making Patient is 55 years old female with history of breast cancer status post right lumpectomy. Patient presented to the ER complaining of bilateral lower extremity rash started 5 days ago after patient started on Bactrim for right breast abscess by her breast surgeon. Patient stated that rash started on her foot and then it spread to her distal lower extremities and her belly. Patient denied any any oral lesion. Patient stated that she has some sharp pain from time to time but stated that she does not have it anymore now. Patient denied a [place] fever or chills. No chest pain, shortness of breath or cough. Patient received Solu-Medrol, Benadryl and Pepcid. Patient stated that her symptom is getting better. No clinical evidence of a Horace Chuckie syndrome. Patient does not look toxic and vital signs stable. Chest x-ray is unremarka ble. Labs reviewed and is unremarkable. Patient strongly advised to follow-up with her primary care physician in the next 2 to 3 days and to discontinue Bactrim and advised to retain to the ER if her symptoms not improved. Critical care attestation.: If time is entered above; I have spent that time in minutes in the direct care of this critically ill patient, excluding procedure time. ED Disposition Clinical Impression: Acute allergic reaction, Medication adverse effect Disposition: DC- TO HOME OR SELFCARE Is pt being admited?: No Condition: Stable Instructions: Drug Rash, Drug Allergy Prescriptions: Famotidine [Pepcid] 40 mg PO QHS #5 tablet diphenhydrAMINE [Benadryl CAP] 25 mg PO Q8HR PRN #20 capsule PRN Reason: Itching Prednisone [predniSONE 10 mg (6-Day Pack, 21 Tabs)] 10 mg PO .TAPER #1 tab.ds.pk Referrals: PRIMARY CARE, [Primary Care Provider] - 3-5 Days DIANA CASTRO MD [Referring] - 3-5 Days
[2020-09-03 13:51] LABS: Partial Thromboplastin Time 27.4 Sec. (24.2-36.6)
[2020-09-03 14:04] LABS: Alanine Aminotransferase 34 units/L (7-56); Albumin 4.1 g/dL (3.9-5); Blood Urea Nitrogen 14 mg/dL (7-17); Calcium 9.5 mg/dL (8.4-10.2); Hemolysis Index 194
[2020-09-03 14:13] LABS: BUN/Creatinine Ratio 20
== END 2020-09-03 16:49 | disposition home or self-care (01) ==
LOC: ED 11:52
DX: R21 Rash and other nonspecific skin eruption (principal); T37.0X5A Adverse effect of sulfonamides, initial encounter; K21.9 Gastro-esophageal reflux disease without esophagitis; M19.90 Unspecified osteoarthritis, unspecified site; J45.909 Unspecified asthma, uncomplicated; Z98.890 Other specified postprocedural states; Z79.899 Other long term (current) drug therapy; Y92.89 Other specified places as the place of occurrence of the external cause
CPT/HCPCS: 36415; 71046; 80053; 84484; 85025; 85610; 85730; 96361; 96374; 96375; 99284; J1200; J2930; J7030

== ENCOUNTER 2021-04-07 10:42 | Outpatient (CLI) | payer MEDICARE ==
--- NOTE | 2021-04-07 12:03 | Mammography Report ---
DIGITAL DIAGNOSTIC MAMMOGRAM WITH CAD , 04/07/2021 CLINICAL INFORMATION / INDICATION: PERSONAL HX OF MALIGNANT NEOPLASM OF BREAST TECHNIQUE: Digital bilateral mammographic imaging was performed. This examination was interpreted with the benefit of Computer-aided Detection analysis. COMPARISON: 10/01/2019 prior mammogram FINDINGS: Breast Density: The breasts are heterogeneously dense, which may obscure small masses. No dominant mass, suspicious calcifications or architectural distortion in the left breast. Since the prior mammogram of 10/01/2019, the patient has a undergone right lumpectomy and radiation. Pr eviously seen malignant mass in the upper outer quadrant of the right breast has been surgically jimy jocelyne. There is a biopsy clip in the mid aspect of the upper outer quadrant of the right breast. Left b reast is unchanged. IMPRESSION: No mammographic evidence of malignancy. Postlumpectomy and radiation change involving the right breast. Follow up recommendation: Routine yearly BI-RADS Category 2: Benign. A "normal" or negative report should not discourage follow up or biopsy of a clinically significant f inding. A written summary of these findings will be mailed to the patient. The patient will be entered into a mammography reporting system which will generate a reminder letter for the patient's next appointmen t at the appropriate interval. According to the [employer], yearly mammograms are recommended starting at age 40 and continuing as long as a woman is in good health. Breast MRI is recommended for women with an ruddy roximately 20-25% or greater lifetime risk of breast cancer, including women with a strong family his tory of breast or ovarian cancer and women who have been treated for Hodgkin's disease. Signer Name: Zenobia Mcgovern MD Signed: 04/07/2021 11:58 AM Workstation Name: [id number]
== END 2021-04-07 10:43 | disposition home or self-care (01) ==
LOC: SPVWC 10:42
PROVIDERS: ATTEND Surgery
DX: R92.8 Other abnormal and inconclusive findings on diagnostic imaging of breast (principal); Z85.3 Personal history of malignant neoplasm of breast
CPT/HCPCS: 77066